=== PATIENT | male | born 1940 | race Asian ===

== ENCOUNTER 2020-07-22 17:00 | Inpatient (IN) | payer OTHER, MEDICARE ==
[~2020-07-22] VITALS: Ht 157.5 cm; Wt 48.5 kg
--- NOTE | 2020-07-22 17:20 | NUR ---
HARIS. FATIGUE, GEN BODY ACHE AND DIARRHEA X 2 WEEKS. PATIENT A/OX4, SWAZI SPEAKING, SON AT BEDSIDE FOR TRANSLATION. DR. PERALTA AT BEDSIDE FOR EVAL.
--- NOTE | 2020-07-22 17:50 | NUR ---
IV LINE ESTABLISHED, BLOOD DRAWN AND SENT TO LAB.
--- NOTE | 2020-07-22 17:51 | NUR ---
US AT BEDSIDE FOR EVAL.
[2020-07-22 17:53] LABS: BASOPHILS # (AUTO) 0.1 /CMM (0.0-0.2); BASOPHILS % (AUTO) 1.4 % (0.0-2.0); EOSINOPHILS % (AUTO) 0.6 % (0.0-6.0); HEMATOCRIT 39 % (39-51); HEMOGLOBIN 12.8 g/dL (13.5-17.5); LYMPHOCYTES # (AUTO) 0.7 /CMM (0.8-4.8); LYMPHOCYTES % (AUTO) 7.1 % (20.0-44.0); MEAN CORPUSCULAR HGB CONC 33 g/dl (31.0-36.0); MEAN CORPUSCULAR VOLUME 81 fL (80-96); MONOCYTES # (AUTO) 0.7 /CMM (0.1-1.30); NEUTROPHILS # (AUTO) 8.2 /CMM (1.8-8.9); NEUTROPHILS % (AUTO) 83.9 % (43.0-81.0); PLATELET COUNT (AUTO) 276 /CMM (150-450); RED BLOOD CELL COUNT(AUTO) 4.84 MIL/uL (4.5-6.0); WHITE BLOOD COUNT (AUTO) 9.8 K/uL (4.3-11.0)
[2020-07-22] MEDS ORDERED: IV NS 0.9% 1,000 ML BAG IV ONE (18:00)
[2020-07-22 18:27] LABS: ALANINE AMINOTRANSFERASE 133 U/L (12-78); ALBUMIN 2.5 g/dL (3.4-5.0); ALKALINE PHOSPHATASE 90 U/L (46-116); ASPARTATE AMINOTRANSFERASE 407 U/L (15-37); BILIRUBIN,DIRECT 0.3 mg/dL (0.0-0.2); BILIRUBIN,TOTAL 0.9 mg/dL (0.2-1.0); CALCIUM, SERUM 8.5 mg/dL (8.5-10.1); CARBON DIOXIDE 24 mmol/L (21-32); CHLORIDE 98 mmol/L (98-107); CREATININE 1.1 mg/dL (0.6-1.3); GLUCOSE 119 mg/dL (74-106); LIPASE 155 U/L (73-393); POTASSIUM 4.6 mmol/L (3.5-5.1); SODIUM SERUM 131 mmol/L (136-145); TOTAL PROTEIN, SERUM 6.3 g/dL (6.4-8.2); UREA NITROGEN, BLOOD 16 mg/dL (7-18)
[2020-07-22] MEDS ORDERED: IV NS 0.9% 250 ML IV ONE (18:44)
[2020-07-22] MEDS ORDERED: IOHEXOL-300 100 ML VIAL IV ONE (18:44)
--- NOTE | 2020-07-22 19:05 | NUR ---
rec'd report from JEANINE Matthew for neetu
--- NOTE | 2020-07-22 19:31 | NUR ---
urine and covid swab sent to the lab
[2020-07-22 19:44] LABS: BILIRUBIN,URINE Negative (NEGATIVE); COLOR,URINE YELLOW (YELLOW); LEUKOCYTE ESTERASE ,URINE Negative (NEGATIVE); NITRITE, URINE Negative (NEGATIVE); PH,URINE 5.5 (5.0-8.0); PROTEIN,URINE Negative (NEGATIVE); UGLUCOSE Negative (NEGATIVE); UROBILINOGEN,URINE 0.2 EU/dL (0.2)
--- NOTE | 2020-07-22 20:00 | NUR ---
PT SATURATING 91%. PLACED ON 2L O2 VIA NC. SATURATING 100%
[2020-07-22] MEDS ORDERED: HEPARIN SODIUM, PORCINE 5000 UNITS/1 ML VIAL IV ONE (20:30)
[2020-07-22] MEDS ORDERED: HEPARIN INFUSION/D5W 500 ML IV PRN (20:30)
--- NOTE | 2020-07-22 20:30 | NUR ---
ORDER FOR HEPARIN DRIP REC'D
[2020-07-22] MEDS ORDERED: HEPARIN SODIUM, PORCINE 5000 UNITS/1 ML VIAL ONE (20:32)
[2020-07-22] MEDS ORDERED: HEPARIN INFUSION/D5W 500 ML IV ONE (20:34)
--- NOTE | 2020-07-22 21:17 | NUR ---
el dent talking to Dr. Flores regarding pt.
[2020-07-22] MEDS ORDERED: MAGNESIUM HYDROXIDE 30 ML UDC PO PRN (21:30)
[2020-07-22] MEDS ORDERED: ONDANSETRON HCL/PF 4 MG/2 ML VIAL IVP PRN (21:30)
[2020-07-22] MEDS ORDERED: MAG HYDROX/AL HYDROX/SIMETH 30 ML UDC PO PRN (21:30)
[2020-07-22] MEDS ORDERED: ACETAMINOPHEN 325 MG TABLET PO PRN (21:30)
[2020-07-22] MEDS ORDERED: HYDROCODONE/APAP 5/325MG TABLET PO PRN (21:30)
[2020-07-22] MEDS ORDERED: Z GUARD REMEDY 2 OZ OINT TP PRN (21:30)
--- NOTE | 2020-07-22 21:48 | NUR ---
pt resting comfortably. easily arousable
--- NOTE | 2020-07-22 22:49 | NUR ---
TELE BED 325-2
--- NOTE | 2020-07-22 23:01 | NUR ---
GAVE REPORT TO JEANINE OLSON FOR NIXON
--- NOTE | 2020-07-22 23:29 | NUR ---
[facility], [facility] [phone]
[2020-07-22 23:30] VITALS: BP 127/67
[2020-07-22] MEDS ORDERED: PANTOPRAZOLE 40 MG VIAL IV SCH (23:30)
--- NOTE | 2020-07-22 23:45 | NUR ---
TELE/RN NOTE PATIENT ARRIVED TO FLOOR WITH 2 STAFF MEMBERS FROM ED. PATIENT IS ALERT AND ORIENTED X 4. PRIMARILY SWAZI SPEAKING. ABLE TO OBTAIN HISTORY FROM SON. VS: BP 127/67 HR 78 RR 18 T 97.7 O2 SAT 98% ON 2L O2 VIA NC. NO SIGNS OR SYMPTOMS OF RESPIRATORY DISTRESS. CONTINUES ON HEPARIN DRIP WITH NO SIGNS OR SYMPTOMS OF BLEEDING NOTED. IV ACCESS TO RIGHT AC INTACT AND PATENT. PATIENT ABLE TO AMBULATE WITH ASSIST. CONTINENT OF BOWEL AND BLADDER. NO COMPLAINTS OF PAIN AT THIS TIME. CALL LIGHT WITHIN REACH. ASPIRATION, FALL AND SAFETY PRECAUTIONS MAINTAINED. WILL CONTINUE TO MONITOR.
[2020-07-23 04:00] VITALS: BP 124/65
--- NOTE | 2020-07-23 04:00 | NUR ---
TELE/RN NOTE PATIENTS PTT LEVEL IS 123.1. PER PROTOCOL HEPARIN HELD X 1HR AND WILL DECREASE RATE AFTER 1HR. NO SIGNS OR SYMPTOMS OF BLEEDING NOTED. PATIENT CURRENTLY RESTING IN BED. Addendum: 07/23/20 at 0451 by WHITNEY VENTURA RN NEXT PTT AT 10AM
[2020-07-23 04:54] VITALS: BP 124/65
--- NOTE | 2020-07-23 06:37 | NUR ---
TELE/RN CLOSING NOTE PATIENT CURRENTLY SLEEPING IN BED. ALERT AND ORIENTED X 3. ABLE TO MAKE NEEDS KNOWN. NO COMPLAINTS OF PAIN THIS SHIFT. IV ACCESS TO RIGHT AC INTACT AND PATENT. CONTINUES ON HEPARIN DRIP @ 800U/HR. NEXT PTT LAB DRAW AT 10AM. NO SIGNS OR SYMPTOMS OF BLEEDING NOTED. TELE READING SHOWS SR HR 71. CALL LIGHT WITHIN REACH. ASPIRATION, FALL AND SAFETY PRECAUTIONS MAINTAINED. WILL ENDORSE PLAN OF CARE TO ONCOMING SHIFT.
[2020-07-23 06:42] LABS: BASOPHILS # (AUTO) 0.1 /CMM (0.0-0.2); BASOPHILS % (AUTO) 0.6 % (0.0-2.0); EOSINOPHILS % (AUTO) 0.2 % (0.0-6.0); HEMATOCRIT 37 % (39-51); HEMOGLOBIN 12.1 g/dL (13.5-17.5); LYMPHOCYTES # (AUTO) 0.6 /CMM (0.8-4.8); LYMPHOCYTES % (AUTO) 6.4 % (20.0-44.0); MEAN CORPUSCULAR HGB CONC 32 g/dl (31.0-36.0); MEAN CORPUSCULAR VOLUME 81 fL (80-96); MONOCYTES # (AUTO) 0.6 /CMM (0.1-1.30); MONOCYTES % (AUTO) 7.4 % (2.0-12.0); NEUTROPHILS # (AUTO) 7.5 /CMM (1.8-8.9); NEUTROPHILS % (AUTO) 85.4 % (43.0-81.0); PLATELET COUNT (AUTO) 267 /CMM (150-450); WHITE BLOOD COUNT (AUTO) 8.7 K/uL (4.3-11.0)
[2020-07-23 07:21] LABS: CALCIUM, SERUM 7.7 mg/dL (8.5-10.1); MAGNESIUM 2.2 mg/dL (1.8-2.4); PHOSPHORUS 4.1 mg/dL (2.5-4.9); POTASSIUM 4.3 mmol/L (3.5-5.1)
[2020-07-23 08:00] VITALS: BP 126/63
--- NOTE | 2020-07-23 08:00 | NUR ---
RN Opening note Received patient in bed, AO x 3, able to responds all stimuli, Pt does appears pain or distress. Skin is warm to touch keep clean/dry intact IV site, patient with oxygen at 2LPM, respiratory even and unlabored on O2sat 97%. Kept locked bed with elevated HOB for aspiration precaution also ensure airway and lowest bed for safety. Call light within reach, will continue to monitor.
[2020-07-23] MEDS ORDERED: HEPARIN INFUSION/D5W 500 ML IV PRN (11:30)
--- NOTE | 2020-07-23 11:59 | NUR ---
PTT done and result is 57, no change dose, clarified with Pharmacy.
[2020-07-23] MEDS ORDERED: [UNRECOGNIZED DRUG - CODE] IV (13:15)
[2020-07-23 16:10] VITALS: BP 111/53
--- NOTE | 2020-07-23 16:26 | NUR ---
Patient transfer to [facility], given report Aye/RN include heparin drip, lab result.
--- NOTE | 2020-07-23 18:47 | NUR ---
2 non food receiving clerk picked up patient to [facility] and given report, patient in stable condition.
== END 2020-07-23 19:00 | disposition short-term general hospital (02) | DRG 134 ==
LOC: ER 17:09 → TRANSITION 22:48 → TELE 22:49 → MED 07-23 13:10
PROVIDERS: ADMIT Internal Medicine; ATTEND Hospitalist
DX: I26.99 Other pulmonary embolism without acute cor pulmonale (principal); E43 Unspecified severe protein-calorie malnutrition; I10 Essential (primary) hypertension; Z68.1 Body mass index [BMI] 19.9 or less, adult; R53.1 Weakness; C22.0 Liver cell carcinoma; Z20.822 Contact with and (suspected) exposure to COVID-19; E22.2 Syndrome of inappropriate secretion of antidiuretic hormone; C78.02 Secondary malignant neoplasm of left lung; R19.7 Diarrhea, unspecified; C78.01 Secondary malignant neoplasm of right lung; D68.69 Other thrombophilia; E86.1 Hypovolemia; R74.01 Elevation of levels of liver transaminase levels; Z86.19 Personal history of other infectious and parasitic diseases; D64.9 Anemia, unspecified; E88.09 Other disorders of plasma-protein metabolism, not elsewhere classified
CPT/HCPCS: 36415; 71045-TC; 71260-TC; 76705-TC; 80048-TC; 80076-TC; 82962-TC; 83690-TC; 83735-TC; 84100-TC; 84484-TC; 85025-TC; 85610-TC; 85730-TC; 87081-TC; C9113; C9803; G0378; J1644; J7030; J7050; Q9967